=== PATIENT | male | born 2000 | race African-American/Black ===

== ENCOUNTER 2021-07-16 17:36 | Emergency (ER) | payer SELFPAY ==
[~2021-07-16] VITALS: Ht 167.6 cm; Wt 68.2 kg
[2021-07-16] MEDS ORDERED: MAGIC MOUTH PO (18:50)
[2021-07-16 18:56] VITALS: BP 144/83; PULSE 72; TEMP 98.4
[2021-07-16 19:19] LABS: STREP SCREEN NEGATIVE
== END 2021-07-16 18:56 | disposition home or self-care (01) ==
LOC: COL.ER 17:36
PROVIDERS: Emergency Medicine
DX: K13.79 Other lesions of oral mucosa (principal); F17.210 Nicotine dependence, cigarettes, uncomplicated